=== PATIENT | female | born 1995 | race Caucasian/White ===

== ENCOUNTER 2022-11-08 14:20 | Outpatient (CLI) | payer BC, SELFPAY | END 2022-11-08 14:21 | disposition home or self-care (01) | LOC: FRMREF 14:21 | PROVIDERS: PCP Family Medicine; Visit Provider Registered Nurse | DX: N97.9 Female infertility, unspecified (principal) | CPT/HCPCS: 84443 ==

== ENCOUNTER 2023-02-15 12:15 | Outpatient (CLI) | payer BC, SELFPAY | END 2023-02-15 12:16 | disposition home or self-care (01) | LOC: NFLDREF 12:16 | PROVIDERS: PCP Family Medicine; Visit Provider Obstetrics & Gynecology | DX: Z32.00 Encounter for pregnancy test, result unknown (principal) | CPT/HCPCS: 84702 ==

== ENCOUNTER 2023-02-18 08:59 | Outpatient (CLI) | payer BC, SELFPAY | END 2023-02-18 09:00 | disposition home or self-care (01) | LOC: NFLDREF 02-20 06:50 | PROVIDERS: PCP Family Medicine; Referring Provider Family Medicine; Visit Provider Obstetrics & Gynecology | DX: O20.9 Hemorrhage in early pregnancy, unspecified (principal) | CPT/HCPCS: 84702 ==

== ENCOUNTER 2023-03-14 07:59 | Outpatient (CLI) | payer BC, SELFPAY ==
--- NOTE | 2023-03-14 08:15 | CRLHL7_ITS ---
For Patients: As a result of the Century Cures Act, medical imaging exams and procedure reports are released immediately into your electronic medical record. You may view this report before your referring provider. If you have questions, please contact your health care provider. INDICATION: First trimester scan, establish dates. COMPARISON: None. TECHNIQUE: Real-time carvajal-scale imaging of the pelvis was performed. FINDINGS: Sonographic imaging demonstrates a single living intrauterine gestation. The embryo demonstrates a regular cardiac rate measuring 161 beats per minute. The embryo`s crown-rump length measurement of 1.3 cm corresponds to a gestational age of 7 weeks 4 days with a sonographic due date of 10/27/2023. There is a normal-appearing yolk sac. There are no gross abnormalities noted within the embryo at this early state of development. The gestational sac has a normal appearance. There is no evidence of a perigestational hemorrhage. The amount of fluid within the sac appears appropriate for gestational age. The cervix is closed. The myometrium appears normal. The ovaries are of normal size. Corpus luteal cyst right ovary. There are no suspicious fluid collections noted in the cul-de-sac. IMPRESSION: Normal first trimester OB ultrasound exam. Gestational age calculated at 7 weeks 4 days with a sonographic due date of 10/27/2023. Dictated by Serge Browning MD @ 03/14/2023 10:04:14 AM (Electronically Signed)
== END 2023-03-14 08:00 | disposition home or self-care (01) ==
LOC: US 08:00
PROVIDERS: PCP Family Medicine; Visit Provider Advanced Practice Midwife
DX: Z34.91 Encounter for supervision of normal pregnancy, unspecified, first trimester (principal); Z3A.01 Less than 8 weeks gestation of pregnancy
CPT/HCPCS: 76817; 86703; 86706; 86803; 86850; 86900; 86901; 87086; 87340

== ENCOUNTER 2023-03-14 09:21 | Outpatient (CLI) | payer BC, SELFPAY | END 2023-03-14 09:22 | disposition home or self-care (01) | PROVIDERS: PCP Family Medicine; Visit Provider Advanced Practice Midwife | DX: Z34.81 Encounter for supervision of other normal pregnancy, first trimester (principal) | CPT/HCPCS: 86592; 86703; 86704; 86706; 86762; 86787; 86803; 86850; 86900; 86901; 87086; 87340 ==

== ENCOUNTER 2023-06-13 07:14 | Outpatient (CLI) | payer BC, SELFPAY ==
--- NOTE | 2023-06-13 07:15 | US_ITS ---
Patient: JOSE LUIS POOLE Facility:?[facility] Patient ID:?[id number] Site Patient ID:?[id number]. Site :?[id number] Study:?US-OB Pelvis anatomy-06/13/2023 8:17:30 AM Ordering Physician:Mauricio Whittington Final Report: INDICATION: Evaluate anatomy. COMPARISON: 03/14/2023 TECHNIQUE: Real time carvajal scale imaging of the fetus was performed as well as color Doppler analysis of the umbilical vessels. FINDINGS: Sonographic imaging demonstrates a single living intrauterine gestation. Fetus demonstrates a regular cardiac rate of 134 beats per minute. Fetus has a breech position. The placenta lies posteriorly without evidence of placenta previa. Placental edge located 7.2 cm from the internal cervical os. Amniotic fluid volume appears normal. Single deepest vertical pocket: 5.3 cm. The cervix is closed and measures 3.4 cm in length. The composite ultrasound gestational age is calculated at 20 weeks 6 days with an estimated sonographic due date of 10/25/2023. The estimated weight is 384 grams which lies at the 78th %. The following biometric measurements were obtained: Biparietal diameter: 4.8 cm/20 weeks 4 days 62nd% Head circumference: 17.9 cm/20 weeks 2 day 43rd% Abdominal circumference: 16.2 cm/21 weeks 2 days 75th% Femur length: 3.4 cm/20 weeks 4 days 54th% The HC/AC ratio measures: 1.10 range (1.06-1.25) On anatomic survey, there is a normal appearance of the cerebral ventricles, cavum septi pellucidi, cisterna magna and cerebellum. The nose, lips, and facial profile appear normal. The cervical, thoracic and lumbar spine are well visualized and appear normal. There is a normal four-chamber heart view and the left and right ventricular outflow tracts appear normal. The diaphragm and stomach appear normal. The kidneys and bladder also appear normal. There is a normal three-vessel cord and cord insertion site. The four extremities appear normal. IMPRESSION: Normal OB ultrasound exam with concordance of clinical and sonographic dating. No intrinsic abnormalities noted on anatomic survey. Dictated by Serge Browning MD @ 06/13/2023 11:00:45 AM Signed by:?Serge Browning MD @06/13/2023 11:00:45 AM (Electronic Signature)
== END 2023-06-13 07:15 | disposition home or self-care (01) ==
LOC: US 07:14
PROVIDERS: PCP Family Medicine; Visit Provider Advanced Practice Midwife
DX: Z34.92 Encounter for supervision of normal pregnancy, unspecified, second trimester (principal); Z3A.20 20 weeks gestation of pregnancy
CPT/HCPCS: 76805

== ENCOUNTER 2023-08-08 09:05 | Outpatient (CLI) | payer BC, SELFPAY | END 2023-08-08 09:06 | disposition home or self-care (01) | LOC: NFLDREF 08-11 02:41 | PROVIDERS: PCP Family Medicine; Referring Provider Family Medicine; Visit Provider Advanced Practice Midwife | DX: Z34.93 Encounter for supervision of normal pregnancy, unspecified, third trimester (principal); Z3A.28 28 weeks gestation of pregnancy | CPT/HCPCS: 86592 ==

== ENCOUNTER 2023-10-03 09:20 | Outpatient (CLI) | payer BC, SELFPAY ==
[2023-10-04 12:37] LABS: Strep B DNA Probe Negative (Negative)
[2023-10-05 13:37] LABS: Strep B Susceptibility Needed? No
== END 2023-10-03 09:21 | disposition home or self-care (01) ==
LOC: NFLDREF 09:20
PROVIDERS: PCP Family Medicine; Visit Provider Advanced Practice Midwife
DX: Z34.93 Encounter for supervision of normal pregnancy, unspecified, third trimester (principal); Z3A.36 36 weeks gestation of pregnancy
CPT/HCPCS: 87081; 87653

== ENCOUNTER 2023-10-17 07:30 | Outpatient (RCR) | payer BC, SELFPAY | END 2023-12-23 09:54 | disposition home or self-care (01) | PROVIDERS: PCP Family Medicine; Visit Provider Advanced Practice Midwife | DX: O99.891 Other specified diseases and conditions complicating pregnancy (principal); R10.30 Lower abdominal pain, unspecified; Z51.89 Encounter for other specified aftercare | CPT/HCPCS: 82728; 97110; 97112; 97140; 97161; 97535 ==

== ENCOUNTER 2023-10-25 20:41 | Inpatient (IN) | payer BC, SELFPAY ==
[2023-10-25] VITALS (12 sets, daily range): BP systolic 95–129; BP diastolic 55–72; PULSE 92–109; TEMP 36.4; BMI 26.3
[2023-10-25] MEDS: OXYTOCIN 10 UNIT/ML INJ IM (21:45)
[2023-10-25] MEDS: LACTATED RINGERS 1000 ML 1,000 ML 500 ML IV (22:14)
[2023-10-25] MEDS: CLINDAMYCIN 900 MG/50 ML-D5W 900 MG/50 ML PIGGYBACK 100 MG IVPB (22:15)
--- NOTE | 2023-10-25 22:23 | W.PM.LDBA ---
Subjective History of Present Illness Narrative: Kiera is a 28 yo at 39 3/7 weeks gestation being admitted to Labor and Delivery for spontaneous onset of labor. She reports she began having irregular contractions yesterday, greater than 10 minute apart. The became more regular at about 1600 this afternoon but not painful. She then had SROM at 1955 of clear fluid at home. Contractions intensified quickly after and they made their way in. Her full history and physical was dictated by MARIELLA Covarrubias on 10/09/2023. Please see this for details. Specific Issues/Plans H&P completed by MARIELLA Covarrubias on 10/08 1. Hx anxiety, Depression and ADHD. Not currently on medications. Denies concerns. 2. Hx recurrent yeast in self tx at 16 wks 3. Thrombocytopenia, stable At 28 weeks: Plts 130 34 weeks: 126 Consider CBC on admission Due for pap PP. COVID: declined Flu: declined TDAP: declined OB - Problem Based A/P Additional Plan (1) Pain during labor: Status: Acute (2) 39 weeks gestation of : Status: Acute (3) SROM (spontaneous rupture of membranes): Status: Acute (4) Thrombocytopenia affecting : Status: Acute Plan ASSESSMENT:? 28 yo at 39 3/7 weeks gestation? complicated by:? Labor type: Spontaneous, Active labor? FHR reassuring Labor complicated by: none? GBS negative? ? PLAN:? 1. Routine intrapartum cares as ordered. Continue with expectant management? 2. Monitoring per policy, Intermittent, Ok to removed from monitor as patient desired to enter tub and reassuring FHR? 3. Planning unmedicated . Desires water . Consent signed. Hep C negative. Candidate for analgesia of choice, if desired.?? 4. Patient encouraged to reposition and ambulate to promote physiologic labor and .? 5. Anticipate ? Delivery/Labor/Induction Plan Plan: expectant management OB Exam Physical Exam Vital signs: Temp Pulse BP 97.5 F L 95 113/62 10/25/23 20:51 10/25/23 22:11 10/25/23 22:11 Narrative: Vitals Reviewed Constitutional:? Alert and oriented x3 HEENT:? Normocephalic, atraumatic Neck:? Supple Lungs:? Clear to auscultation bilaterally Heart:? Regular rate and rhythm, no murmur, rub or gallop Abdomen:? Soft, nontender, and gravid. Vertex by Milo's, confirmed with cervical exam. Extremities:? No edema or erythema Cervix: Deferred due to SROM NST: 150 bpm/moderate variability/15x15 accelerations/unable to determine decelerations/contractions every 2-3 minutes, removed from NST at 7 minutes as portable was not working. Switched to doppler with reassuring FHT, delivery imminent Detailed Labor and Delivery Exam Patient Gravid: Yes
[2023-10-25 22:44] LABS: Basophils Absolute Auto 0.01 K/uL (0.00-0.30); Basophils Percent Auto 0.1 % (0.0-3.0); Eosinophils Absolute Auto 0.02 K/uL (0.00-0.50); Eosinophils Percent Auto 0.2 % (0.0-7.0); Hematocrit 38.7 % (33.0-51.0); Immature Granulocytes Abs Auto 0.12 K/uL (0.00-0.30); Immature Granulocytes Pct Auto 1.2 %; Lymphocytes Percent Auto 7.2 % (20-44); Mean Corpuscular HGB Conc 34 gm/dL (32-36); Mean Corpuscular Hemoglobin 30 pg (26-34); Mean Corpuscular Volume 88 fL (80-100); Monocytes Percent Auto 5.5 % (0.0-11.0); Neutrophils Percent Auto 85.8 % (42.0-72.0); Platelet Count* 98 K/uL (140-440); RDW Coefficient of Variation % 13.3 % (11.5-15.5); Red Blood Count 4.38 m/uL (4.00-5.20); White Blood Count* 9.96 K/uL (4.50-11.00)
--- NOTE | 2023-10-25 22:44 | W.PM.OBVAGDE ---
OB Procedure Vag Delivery Mother Details Mother Details: Kiera is a 28 year-old, 3, now Para 2, admitted on 10/25/23 at 39 3/7 gestation. : 3 Para: 2 Weeks Gestation: 39.3 Admission Date: 10/25/23 Additional Details Amniotic Membrane Status: SROM Amniotic Membrane Rupture Date: 10/25/23 Amniotic Membrane Rupture Time: 19:55 Amniotic Membrane Fluid Description: Clear Analgesia/Anesthesia Type: None Waterbirth: Yes Pitcoin: Yes (AMTSL only after discussion) Heart: heart tones during second stage were reassuring via intermittent auscultation, delivery imminent after doppler of FHR in the 150's and discontinued monitoring when head was palpated. Delivery Details Delivery Date: 10/25/23 Delivery Time: 21:03 Route of delivery: Infant Gender: Female Infant Viability: Alive; Heart Rate Present Position at Delivery: OA Delivery Details: Patient was admitted for spontaneous onset of labor with SROM prior to arrival and progressed normally. SROM noted at 1954 with clear fluid. She was coping well on arrival and shortly after the monitors were placed started to feel the urge to push. She requested the tub and due to monitor errors we elected to switch to intermittent monitoring due to reassuring status and likely imminent delivery. Patient was assumed complete with pushing at 2050. of a viable female at 2102 in kneeling position in the tub. Vertex delivered OA. No nuchal cord or shoulder. Body did not easily deliver so patient was instructed to bring one foot up into a lunge. hand was palpated and delivered. Body then easily delivered without incident. Infant passed to mothers abdomen with a vigorous cry. Cord was clamped and cut at > 5 minutes. APGARS were 8 at one minute and 8 at five minutes respectively. Mouth was bulb suctioned. Gentle traction was attempted on placenta and cord avulsed. Manual removal was attempted and not initially successful, after 3 attempts, placenta with a 3 vessel cord delivered manually at 2133. Dr. Acosta was called to assist since she was available on the unit but placenta was delivered as she entered the room. She evaluated with CNM for completeness of placenta. It appears to be intact, sent to pathology for confirmation. Bleeding appropriate after delivery. Fundus firm. Intact perineum. QBL 440 cc + 400 EBL in tub, total 840. Patient initially declined pitocin. She then passed a clot when she attempted to void, bleeding in toilet was minimal following and bleeding resolved post IM Pitocin. 1 dose of clindamycin given for prophylaxis per NDP recommendation, allergy to cephalexin with unknown reaction. Mother and baby stable; mother plans to breastfeed. Infant weight 8 lb 4oz. 1 Minute Interval Total Score: 8 5 Minute Interval Total Score: 8 Additional Details Shoulder Dystocia: No Placenta Delivery Time: 21:34 Placental Delivery Description: Spontaneous Delivery repair: Vicryl Procedure Done: Global Blood Loss: 840 Laceration: None Blood Loss Measurement Type: QBL Bakri Used: No Sponge/Need Count Correct: Yes Cord Vessel Description: 3 Vessels Event Summary Status: Mother and were stable after delivery. Disposition: floor
[2023-10-25 22:46] LABS: Slide Review Reflex No
[2023-10-26] MEDS: IBUPROFEN 600 MG TABLET PO ×3 (00:47→16:56)
[2023-10-26 04:39] VITALS: BP 114/72; PULSE 96; RESP 16; TEMP 36.7; O2SAT 96
[2023-10-26 06:33] LABS: Hemoglobin* 10.1 gm/dL (12.0-16.0)
[2023-10-26 08:03] VITALS: BP 108/70; PULSE 83; RESP 18; O2SAT 96
[2023-10-26] MEDS: DOCUSATE SODIUM 100 MG CAPSULE PO (08:05)
--- NOTE | 2023-10-26 09:32 | PM.OBDSVD1 ---
DS: Providers Provider Date Seen: 10/26/23 Date of admission: 10/25/23 20:41 Primary care physician: Davon Chambers MD Admitting Clinician: Daphnie Orr CNM Attending Physician on discharge: Daphnie Orr CNM Date of Discharge: 10/26/23 DS: Diagnosis Discharge Diagnosis (1) Lactating mother: Status: Acute (2) care following vaginal delivery: Status: Acute (3) Avulsion of umbilical cord: Status: Acute (4) Thrombocytopenia affecting : Status: Acute (5) Adjustment disorder with mixed anxiety and depressed mood: Status: Chronic (6) ADHD (attention deficit hyperactivity disorder): Status: Chronic Exam Narrative: Exam Narrative: GENERAL APPEARANCE:? normal affect, alert, no distress? MOOD:? appropriate? CHEST:? clear to auscultation and percussion? HEART:? regular rate and rhythm? ABDOMEN:? soft, non-tender the uterine fundus is U/2 and is appropriate for the stage of recovery. PERINEUM:? mild edema of the perineum, there is a intact perineum that is healing well.? EXTREMITIES:? normal and no edema? Const: Vital Signs, click to edit/add: Vital Signs - 24 hr 10/25/23 20:51 10/25/23 21:26 10/25/23 21:41 Temperature 97.5 F L Pulse Rate 92 95 Pulse Rate [Pulse Oximeter] Respiratory Rate Blood Pressure 129/60 110/72 Blood Pressure [Le ft Arm] [facility] 21:47 10/25/23 21:56 10/25/23 22:11 Temperature Pulse Rate 98 97 95 Pulse Rate [Pulse Oximeter] Respiratory Rate Blood Pressure 95/57 L 113/62 113/62 Blood Pressure [Le ft Arm] Pulse [facility]ximetry [facility] 10/25/23 22:26 10/25/23 22:41 10/25/23 22:56 Temperature Pulse Rate 102 H 105 H 97 Pulse Rate [Pulse Oximeter] Respiratory Rate Blood Pressure 114/55 L 111/67 122/71 Blood Pressure [Le ft Arm] Pulse [facility]ximetry [facility] 10/25/23 23:11 10/25/23 23:26 10/25/23 23:41 Temperature Pulse Rate 98 104 H 109 H Pulse Rate [Pulse Oximeter] Respiratory Rate Blood Pressure 122/56 L 115/71 110/67 Blood Pressure [Le ft Arm] Pulse Oximetry Oxygen Delivery Me thod 10/26/23 04:39 10/26/23 08:03 Temperature 98.1 F Pulse Rate Pulse Rate [Pulse Oximeter] 96 83 Respiratory Rate 16 18 Blood Pressure Blood Pressure [Le ft Arm] 114/72 108/70 Pulse Oximetry 96 96 Oxygen Delivery Me thod Room Air Room Air Documenting provider has reviewed patient's vital signs: yes OB - DS: Summary Hospital Course Hospital Course: Kiera is a 28 year old G 3 P 2 at 39.3 weeks gestation that was admitted to the Center on 10/25/23 for SROM and active labor. She had an vaginal delivery complicated by cord evulsion and manual removal of the placenta. Bleeding has been stable since delivery. She delivered a viable female . She is breast feeding and denies concerns with how it is going. the patient has done well. Her pain is well controlled with current medications.? She has no new complaints.? Urinary output is adequate and she is voiding without difficulty.? Has a good appetite, is tolerating a general diet, is passing flatus, and has not had a bowel movement.? Has scant amount of rubra lochia.? She is ambulating well.?She is planning NFP and condoms for contraception. She desires discharge late tonight at 24 hours but is aware that it is dependent on baby passing tests and bleeding remaining stable. Peripartum Data Infant delivery method: Vaginal Laceration description: None Episiotomy description: None complications: retained placenta (after cord evulsion ) Infant Gender: Female Discharge Plan: Home Status at Discharge Functional status at discharge: independent ambulation Overall status at discharge: patient is progressing back to baseline Time Spent with Patient Time attestation: Total time spent providing and/or coordinating discharge services: Discharge Plan Discharge Disposition: Home, Self-Care Date of Admission: 10/25/23 20:41 Primary Care Provider: Davon Chambers Condition: Stable Anticipated Discharge Date/Time: 10/26/23 22:00 Discharge Medications: New docusate sodium 100 mg Capsule 100 mg PO DAILY Qty: 90 0RF Rx Instructions: Take 1-2 tablets daily as needed for constipation. ibuprofen 600 mg Tablet 600 mg PO Q6H PRNQty: 30 0RF ferrous sulfate 325 mg (65 mg iron) tablet 325 mg PO Q OTHER DAY Qty: 90 0RF Continued Classic 28 mg iron- 800 mcg tablet PO DAILY cholecalciferol (vitamin D3) 125 mcg (5,000 unit) capsule 125 mcg PO QDAY magnesium carbonate 250 mg capsule PO Discharge Orders: Discharge Order (Routine); Ordered 10/26/23 Ordered By: Pam Chaidez Patient Education: OB Vaginal/Breast Feeding Additional Instructions: Discharge instructions were reviewed with the patient including signs and symptoms of infection and home going medications.? Lifting Restrictions: 20 pounds for 6? weeks? ?? Do not drive while taking narcotic pain meds.? Off Work or School for 6 weeks.? ?? Symptoms to report to doctor:? -Bleeding that saturates more than one pad per hour? -Passing clots larger than the size of a golf ball? -Pain not relieved by prescribed medication? -Fever above 100.4 degrees Fahrenheit? -A foul vaginal odor? -Difficulty in emotions, mood and functions? -Thoughts of hurting yourself and/or ? -Painful, reddened area in your breast? -Any drainage, redness or tenderness in your IV/epidural site? -Severe headache that doesn't improve after taking medications? -Changes in vision, including temporary loss of vision, blurred vision, and/or light sensitivity? -Upper abdominal pain (usually under ribs on the right side)? -Decrease in urination or painful, frequent urinating? -Chest pain? -Shortness of breath? -Tenderness or pain with redness and/swelling in the calf(s) of your leg? ?? Follow Up in clinic in 2 and 6 weeks.? ?? consultation services are available to all mothers and babies for the first year after delivery.? To make an appointment, please call [phone].? Activity Level: Activity as Tolerated Discharge Diet: Regular Follow Up Appointments: [facility] [Provider Group] Forms: MyHealth Info Instructions
[2023-10-26 12:34] VITALS: BP 108/72; PULSE 86; RESP 16; TEMP 36.8; O2SAT 96
[2023-10-26 16:57] VITALS: BP 109/66; PULSE 86; RESP 16; TEMP 36.6
[2023-10-26 20:38] VITALS: BP 107/63; PULSE 89; RESP 16; TEMP 36.6
== END 2023-10-26 22:01 | disposition home or self-care (01) | DRG 541 ==
LOC: OB OUT 20:41 → OB 10-26 09:38
PROVIDERS: Admitting Provider Advanced Practice Midwife; PCP Family Medicine; Visit Provider Advanced Practice Midwife
DX: O99.12 Other diseases of the blood and blood-forming organs and certain disorders involving the immune mechanism complicating childbirth (principal); D69.6 Thrombocytopenia, unspecified; O69.89X0 Labor and delivery complicated by other cord complications, not applicable or unspecified; O73.0 Retained placenta without hemorrhage; O99.344 Other mental disorders complicating childbirth; F43.23 Adjustment disorder with mixed anxiety and depressed mood; F90.9 Attention-deficit hyperactivity disorder, unspecified type; Z37.0 Single live birth; Z3A.39 39 weeks gestation of pregnancy
CPT/HCPCS: 36415; 85018; 85025; 86592; 88307; G0463; A9270; J0736; J2590; J7120

== ENCOUNTER 2023-10-31 12:54 | Outpatient (CLI) | payer BC, SELFPAY ==
--- NOTE | 2023-10-31 13:48 | P.LACCB_ITS ---
Consult Note - Mom Date of Visit Date of visit: 10/31/23 rn lactation consultant: Shazia Kemp Visit Code: Visit Patient's Information Phone number: [phone] : 3 Para: 2 Allergies cephalexin Allergy (Unknown, Verified 10/24/23 10:04) Unknown Mother's Medical History: Medical History (Updated 10/26/23 @ 09:37 by Pam Chaidez CNM) Yeast infection ?B37.9 - Candidiasis, unspecified (ICD-10) Atypical nevus ?D22.9 - Melanocytic nevi, unspecified (ICD-10) Adjustment disorder with mixed anxiety and depressed mood ?F43.23 - Adjustment disorder with mixed anxiety and depressed mood (ICD-10) History of Clostridioides difficile infection (2009) ?Z86.19 - Personal history of other infectious and parasitic diseases (ICD- 10) Central retinal vein occlusion (~2020) ?H34.8192 - Central retinal vein occlusion, unspecified eye, stable (ICD-10) Acne ?L70.9 - Acne, unspecified (ICD-10) Migraines ?G43.909 - Migraine, unspecified, not intractable, without status migrainosus (ICD-10) History of vitamin D deficiency ?Z86.39 - Personal history of other endocrine, nutritional and metabolic disease (ICD-10) ADHD (attention deficit hyperactivity disorder) ?F90.9 - Attention-deficit hyperactivity disorder, unspecified type (ICD-10) Delivery Information Delivery type: Vaginal Weeks Gestation: 39+3 Gestational Age: AGA Weight: 3.745 kg Discharge Weight: 3.745 kg Baby's Information Baby's Age at Visit: 6 days Baby's Provider or Clinic: [facility] Jaundice: Yes (to mod-chest; bilirubin checked yesterday and below treatment threshold) Reason for Consult Reason for Consult: lacth issues, baby sleepy at breast, mom with cracked/bleeding nipples Past Experience Past Experience: Yes (for about 3 months) Current Frequency of Day Feedings: every 3 hours, waking for feedings Frequency of Night Feedings: same Both Breasts: Yes Suck: intermittently strong Latch: mom thinks shallow based on nipple pain Length of Time: 30 min ea breast Goals: 1 year Pumping Pumping: No (using a [place] trove for milk collection) Supplementing EMB Supplement: Yes (a few times, about 1 oz after ) Formula Supplement: No Baby Elimination Number of Wet Diapers a Day: 6 or more today Number of BM a Day: 4-5 stools, yellow/seedy Breast/Nipple Condition Breast Information: Breasts are symmetrical with rounded lower quadrants, intramammary distance is less than 1.5 inches. No erythema. Nipples are supple, everted prior to feeding. Engorgement: No Maternal Nipple Condition - Left: Common Nipple and Cracking/ Fissures Maternal Nipple Condition - Right: Common Nipple and Cracking/ Fissures Sore Nipples: Yes Interventions for Sore Nipples: Lansinoh ([employer] nipple cream) Onsite Pre-Feed weight: 3.62 kg (clothed, diapered) Post-Feed weight: 3.65 kg Milk Transferred (mL): 30 Pre-Nursing Left Nipple: Crusting/Scabs Pre-Nursing Right Nipple: Crusting/Scabs Post-Nursing Left Nipple: Crusting/Scabs Post-Nursing Right Nipple: Crusting/Scabs Assessments/Interventions Assessments/Interventions: Latch assist: Worked with mom on asymmetric latch technique and a ?breast sandwich? to assist a wider, deeper latch with less pain reported. Discussed waiting for baby to have a wide open mouth before bringing to the breast. Work to drag bottom lip/jaw onto breast to use leverage to keep mouth wide open and assist deeper, more comfortable, effective latch. observation: Babe nursed left side for 10 minutes before getting sleepy and moving into a non-nutritive suck pattern; had transferred 12 ml Babe then nursed right breast for 8 minutes before getting sleepy; had transferred 10 more ml Discussed switch nursing with mom and she put baby back on left side for another 10 minutes and babe transferred another 8 ml, came off the breast and was relaxed and content. Transferred 30 ml total. Nipple slightly flattened on right side when comes off but rounded on left side. discussed position changes to minimize this flattening. Discussed nutritive vs non-nutritive sucking pattern of baby and try switch nursing when baby is no longer transferring milk. Also taught breast compression to assist babe getting more milk with slightly less effort until milk supply more established. Mom using a [place] [employer] to collect milk (not pumping); if give milk to baby discussed paced bottle feeding and expected needs over next week or so. Discussed need to feed/pump on routine schedule as milk supply is getting established. Also discussed pacifier use (minimize) until more well established. Reviewed basics of ? positioning for mom and baby, expressing a few drops of colostrum to help encourage baby to latch, offering both breasts at each feeding for increased intake for baby and to keep mom?s breasts comfortable, especially as milk starts to come in Baby should eat every 2-3 hours, some cluster feeding is also normal.? Important to wake baby for feeding if baby is sleeping, may need to undress to get her awake and able to get close to the breast.? Mom to call with ongoing questions/concerns. Time spent reviewing EMR and face to face with mom /baby: 60 minutes Meds Home Medications and Allergies Home Medications ?Medication ?Instructions ?Recorded ?Confirmed ?Type cholecalciferol (vitamin D3) 125 125 mcg PO QDAY 03/14/23 10/31/23 History mcg (5,000 unit) capsule magnesium carbonate 250 mg capsule mg PO 03/14/23 10/24/23 History vits no.126-ferrous fum tab PO DAILY 03/14/23 10/17/23 History 28 mg iron-folic acid 800 mcg tablet (Classic ) Allergies Allergy/AdvReac Type Severity Reaction Status Date / Time cephalexin Allergy Unknown Unknown Verified 10/24/23 10:04
== END 2023-10-31 12:55 | disposition home or self-care (01) ==
LOC: OB LAC 12:55
PROVIDERS: PCP Family Medicine; Visit Provider Obstetrics & Gynecology
DX: Z39.1 Encounter for care and examination of lactating mother (principal)
CPT/HCPCS: G0463

== ENCOUNTER 2023-12-05 10:01 | Outpatient (CLI) | payer BC, SELFPAY ==
[2023-12-10 17:13] LABS: HPV Source Cervix; HPV, High Risk by TMA Not Detected
== END 2023-12-05 10:02 | disposition home or self-care (01) ==
PROVIDERS: PCP Family Medicine; Visit Provider Registered Nurse
DX: Z39.2 Encounter for routine postpartum follow-up (principal)
CPT/HCPCS: 87624; 87625; 88141; 88142

== ENCOUNTER 2024-11-10 15:51 | Outpatient (CLI) | payer OTHER, SELFPAY ==
--- NOTE | 2024-11-10 16:00 | CRLHL7_ITS ---
For Patients: As a result of the Century Cures Act, medical imaging exams and procedure reports are released immediately into your electronic medical record. You may view this report before your referring provider. If you have questions, please contact your health care provider. OB ULTRASOUND LESS THAN 14 WEEKS, 11/10/2024 CLINICAL HISTORY: Dating and viability. COMPARISON: None. TECHNIQUE: Grayscale and color Doppler ultrasound of the uterus and ovaries from a transabdominal and transvaginal approach. Transvaginal ultrasound of the pelvis was performed to better evaluate the genitourinary organs such as the ovaries and/or endometrium. FINDINGS: Imaging: TV. LMP: 09/14/2024. BO by LMP: 06/21/2025. GA: 8 weeks 1 day. CRL: 0.8 cm, 6 weeks 5 days. BO 07/01/2025. FHR: 105 bpm. GEST SAC: 2.4 cm, appears WNL. YOLK SAC: 2.8 mm, appears WNL. RIGHT OV: 4.1 x 2.1 x 1.7 cm. LEFT OV: 3.6 x 2.0 x 2.6 cm. CL. IMPRESSION: 1. Single living intrauterine measures 6 weeks 5 days with sonographic due date 07/01/2025. 2. heart rate 105 bpm. Follow-up recommended. Serge Browning M.D. Diagnostic Radiologist [email or web address] Transcribed: 9:14 am DW/Dictated by: Serge Browning MD @ 11/11/2024 6:38:00 AM (Electronically Signed)
== END 2024-11-10 15:52 | disposition home or self-care (01) ==
LOC: US 15:52
PROVIDERS: PCP Family Medicine; Visit Provider Registered Nurse
DX: Z34.91 Encounter for supervision of normal pregnancy, unspecified, first trimester (principal); Z3A.08 8 weeks gestation of pregnancy
CPT/HCPCS: 76817

== ENCOUNTER 2024-11-23 15:51 | Outpatient (CLI) | payer OTHER, SELFPAY ==
--- NOTE | 2024-11-23 16:00 | CRLHL7_ITS ---
For Patients: As a result of the Cures Act, medical imaging exams and procedure reports are released immediately into your electronic medical record. You may view this report before your referring provider. If you have questions, please contact your health care provider. OB ULTRASOUND LESS THAN 14 WEEKS CLINICAL HISTORY: with inconclusive viability. TECHNIQUE: Grayscale and color Doppler ultrasound of the uterus and ovaries from a transabdominal and transvaginal approach. Transvaginal ultrasound of the pelvis was performed to better evaluate the genitourinary organs such as the ovaries and/or endometrium. FINDINGS: Imaging: TV. Previous US: 11/10/2024. BO by US: 07/01/2025. GA: 6 weeks 5 days. CRL: 2.1 cm, 8 weeks 5 days. BO: 06/30/2025. FHR: 152 bpm. GEST SAC: 4.6 cm, appears WNL. YOLK SAC: 3.2 mm, appears WNL. RIGHT OV: 3.4 x 1.5 x 2.1 cm. LEFT OV: 3.6 x 2.1 x 2.0 cm. CL. IMPRESSION: Single living intrauterine measures 8 weeks 5 days with sonographic due date 06/30/2025. Serge Browning M.D. Diagnostic Radiologist [email or web address] Transcribed: 9:48 am DW/Dictated by: Serge Browning MD @ 11/24/2024 8:35:00 AM (Electronically Signed)
--- NOTE | 2024-11-23 16:00 | US_ITS ---
Patient: JOSE LUIS POOLE Facility:?[facility] Patient ID:?[id number] Site Patient ID:?[id number]. Site :?[id number] Study:?US-OB Pelvis 1st Tri Transvaginal-11/23/2024 4:42:43 PM Ordering Physician:Marilee Gross Final Report: ADDENDUM/CORRECTION: TECHNIQUE: Grayscale and color Doppler ultrasound of the uterus and ovaries from a transabdominal approach. Imaging: TA. CRL:jmr OB ULTRASOUND LESS THAN 14 WEEKS CLINICAL HISTORY: with inconclusive viability. TECHNIQUE: Grayscale and color Doppler ultrasound of the uterus and ovaries from a transabdominal and transvaginal approach. Transvaginal ultrasound of the pelvis was performed to better evaluate the genitourinary organs such as the ovaries and/or endometrium. FINDINGS: Imaging: TV. Previous US: 11/10/2024. BO by US: 07/01/2025. GA: 6 weeks 5 days. CRL: 2.1 cm, 8 weeks 5 days. BO: 06/30/2025. FHR: 152 bpm. GEST SAC: 4.6 cm, appears WNL. YOLK SAC: 3.2 mm, appears WNL. RIGHT OV: 3.4 x 1.5 x 2.1 cm. LEFT OV: 3.6 x 2.1 x 2.0 cm. CL. IMPRESSION: Single living intrauterine measures 8 weeks 5 days with sonographic due date 06/30/2025. Serge Browning M.D. Diagnostic Radiologist [email or web address] DSM/maniw: D& Transcribed: 9:48 am DW/Dictated by: Serge Browning MD @ 11/24/2024 8:35:00 AM Signed by: Serge Browning @ 11/24/2024 9:56:02 AM (Electronic Signature) Signed by:?Serge Browning MD @11/24/2024 2:04:10 PM (Electronic Signature)
== END 2024-11-23 15:52 | disposition home or self-care (01) ==
LOC: US 15:52
PROVIDERS: PCP Family Medicine; Visit Provider Registered Nurse
DX: O36.80X0 Pregnancy with inconclusive fetal viability, not applicable or unspecified (principal); Z3A.01 Less than 8 weeks gestation of pregnancy
CPT/HCPCS: 76801; 76817

== ENCOUNTER 2024-11-23 17:19 | Outpatient (CLI) | payer OTHER, SELFPAY | END 2024-11-23 17:20 | disposition home or self-care (01) | PROVIDERS: PCP Family Medicine; Visit Provider Physician Assistant | DX: Z34.91 Encounter for supervision of normal pregnancy, unspecified, first trimester (principal) | CPT/HCPCS: 83020; 83021; 85660; 86592; 86703; 86704; 86706; 86762; 86787; 86803; 86850; 86900; 86901; 87086; 87340 ==